=== PATIENT | female | born 1950 | race Caucasian/White ===

== ENCOUNTER 2018-05-14 09:20 | Day surgery (SDC) | payer MEDICARE, OTHER ==
[2018-05-14 09:51] VITALS: BMI 30.4
[2018-05-14] MEDS ORDERED: Propofol 10 mg/ml Inj (20 ML) ONE (10:33)
[2018-05-14] MEDS ORDERED: Lactated Ringer's 1,000 ML IV ONE (10:40)
--- NOTE | 2018-05-14 10:41 | CP.SDSHP ---
Same Day Surgery H & P - History Proposed Procedure: EGD Pre-Op Diagnosis: SEE NOTES - Previous Medical/Surgical History Pulmonary: Asthma Neuro: Other Misc: Other Pain: 4.Moderate Pain - Allergies Allergies: Allergies No Known Allergies Allergy (Verified 05/14/18 09:51) - Physical Exam General Appearance: N Vital Signs: Vital Signs 05/14/18 09:52 Temperature 97.9 F Pulse Rate 77 Respiratory 20 Rate Blood Pressure 126/49 L O2 Sat by Pulse 99 Oximetry Mental Status: Alert & Oriented x3 Neuro: Other Heart: Other Lungs: Other GI: Other - {Optional Preform as Required} Breast: WNL Abdomen: Other Rectal: Other Integument: WNL : WNL Ortho: WNL ENT: WNL - Impression Pt. Evaluated Today:Candidate for Anesthesia & Procedure: Yes - Date & Time Time: 10:54 Short Stay Discharge - Short Stay Discharge Admitting Diagnosis/Reason for Visit: FUNCTIONAL DYSPEPSIA Disposition: HOME/ ROUTINE
[2018-05-14] MEDS ORDERED: Belladonna-Phenobarbital PO STA (10:55)
[2018-05-14] MEDS ORDERED: Pantoprazole 40 mg EC Tab PO STA (10:55)
[2018-05-14 11:17] VITALS: TEMP 96.8; O2SAT 100
[2018-05-14 11:42] VITALS: BP 126/68; PULSE 59; RESP 18
[2018-05-14] MEDS ORDERED: Midazolam 2 MG/2 ML VIAL ONE (11:55)
[2018-05-14] MEDS ORDERED: Rocuronium 10 mg/ml (10 ml) ONE (11:57)
[2018-05-14] MEDS ORDERED: Etomidate 20 mg/10ml Inj IV ONE (11:59)
[2018-05-14] MEDS ORDERED: Neostigmine Methylsulfate 3mg/3ml Syringe IV ONE (12:36)
--- NOTE | 2018-05-14 20:39 | CARD ---
APPROVED REPORT Date of service: 05/14/2018 EKG Measurement Heart [id number] [id number] <Conclusion> Sinus rhythm with short NH Left ventricular hypertrophy with QRS widening Possible Lateral infarct, age undetermined T wave abnormality, consider anterior ischemia Abnormal ECG
== END 2018-05-14 12:00 | disposition home or self-care (01) ==
LOC: C.ENDO 09:20
PROVIDERS: ATTEND Specialist
DX: K29.50 Unspecified chronic gastritis without bleeding (principal); K44.9 Diaphragmatic hernia without obstruction or gangrene; K30 Functional dyspepsia; R11.2 Nausea with vomiting, unspecified; J45.909 Unspecified asthma, uncomplicated
CPT/HCPCS: 43239; 88305; 93005; J2001; J2250; J2704; J2710; J3010; J7120

== ENCOUNTER 2018-05-18 06:58 | Day surgery (SDC) | payer MEDICARE, OTHER ==
[2018-05-18] MEDS ORDERED: Lactated Ringer's 1,000 ML IV ONE (07:55)
[2018-05-18] MEDS ORDERED: Propofol 10 mg/ml Inj (20 ML) ONE (07:59)
--- NOTE | 2018-05-18 08:02 | CP.SDSHP ---
Same Day Surgery H & P - History Proposed Procedure: COLONSCOPY Pre-Op Diagnosis: SEE NOTES - Previous Medical/Surgical History Cardiac: Hypertension Pulmonary: Asthma Endocrine/Metabolic: Other Neuro: Other Misc: Other Pain: 4.Moderate Pain - Allergies Allergies: Allergies No Known Allergies Allergy (Verified 05/14/18 09:51) - Physical Exam General Appearance: N Vital Signs: Vital Signs 05/18/18 07:10 Temperature 97.1 F L Pulse Rate 80 Respiratory 20 Rate Blood Pressure 118/57 L O2 Sat by Pulse 98 Oximetry Mental Status: Alert & Oriented x3 Neuro: Other Heart: Other Lungs: Other GI: WNL - {Optional Preform as Required} Breast: WNL Rectal: Other Integument: WNL : WNL Ortho: Other ENT: WNL - Impression Pt. Evaluated Today:Candidate for Anesthesia & Procedure: Yes - Date & Time Time: 08:01 Short Stay Discharge - Short Stay Discharge Admitting Diagnosis/Reason for Visit: WEIGHT LOSS Disposition: HOME/ ROUTINE
[2018-05-18] MEDS ORDERED: Belladonna-Phenobarbital PO STA (08:25)
[2018-05-18 08:49] VITALS: TEMP 97.8
[2018-05-18 09:15] VITALS: O2SAT 98
[2018-05-18 11:08] VITALS: BP 115/89; PULSE 62; RESP 11
== END 2018-05-18 10:00 | disposition home or self-care (01) ==
LOC: C.ENDO 06:58
PROVIDERS: ATTEND Specialist
DX: R63.4 Abnormal weight loss (principal); K57.30 Diverticulosis of large intestine without perforation or abscess without bleeding; K64.8 Other hemorrhoids; K58.9 Irritable bowel syndrome, unspecified
CPT/HCPCS: 45378; J2704; J7120

== ENCOUNTER 2018-08-26 07:31 | Day surgery (SDC) | payer MEDICARE, OTHER ==
[2018-08-26 08:39] VITALS: BMI 32.0
--- NOTE | 2018-08-26 10:03 | CP.SDSHP ---
Same Day Surgery H & P - History Proposed Procedure: COLONSCOPY Pre-Op Diagnosis: SEE NOTES - Previous Medical/Surgical History Cardiac: Other Pulmonary: Asthma Endocrine/Metabolic: Other Neuro: Other Misc: Other Pain: 4.Moderate Pain - Allergies Allergies: Allergies No Known Allergies Allergy (Verified 08/26/18 08:31) - Physical Exam General Appearance: N Vital Signs: Vital Signs 08/26/18 08:20 Temperature 98.4 F Pulse Rate 83 Respiratory 16 Rate O2 Sat by Pulse 97 Oximetry Mental Status: Alert & Oriented x3 Neuro: WNL Heart: Other Lungs: Other GI: Other - {Optional Preform as Required} Breast: WNL Abdomen: Other Rectal: Other Integument: WNL : WNL Ortho: Other ENT: WNL - Impression Pt. Evaluated Today:Candidate for Anesthesia & Procedure: Yes - Date & Time Time: 10:03 Short Stay Discharge - Short Stay Discharge Admitting Diagnosis/Reason for Visit: ABDOMINAL PAIN / CHANGE IN BOWEL HABIT Disposition: HOME/ ROUTINE
[2018-08-26] MEDS ORDERED: Propofol 10 mg/ml Inj (20 ML) ONE ×2 (10:10→10:21)
[2018-08-26] MEDS ORDERED: Lactated Ringer's 1,000 ML IV ONE (10:15)
[2018-08-26] MEDS ORDERED: Belladonna-Phenobarbital PO ONE (10:45)
[2018-08-26 11:00] VITALS: PULSE 60
[2018-08-26 12:33] VITALS: BP 106/68; RESP 18; TEMP 98; O2SAT 100
== END 2018-08-26 11:50 | disposition home or self-care (01) ==
LOC: C.ENDO 07:31
PROVIDERS: ATTEND Specialist
DX: R10.9 Unspecified abdominal pain (principal); R19.4 Change in bowel habit; K57.30 Diverticulosis of large intestine without perforation or abscess without bleeding; K64.8 Other hemorrhoids
CPT/HCPCS: 45380; 88305; J2704; J7120

== ENCOUNTER 2018-11-16 11:14 | Outpatient (CLI) | payer MEDICARE, OTHER | END 2018-11-16 11:15 | disposition home or self-care (01) | LOC: C.RADH 11:15 ==